=== PATIENT | female | born 1965 | race Caucasian/White ===

== ENCOUNTER → 2016-06-09 | Outpatient (CLI) | payer BC ==
[~2016-06-09] MED LIST: ASPIRIN81 M2 PO; ATENOLOL PO; AUGMENTIN PO; BENADRYL25 M3 PO; CARDIZEM CD120 M1 PO; CELEXA PO; LISINOPRIL10 MG PO; METFORMIN HCL500 M1 PO; PHENERGAN PO; TYLENOL #3 PO; VENLAFAXINE HC150 M1; ZITHROMAX PO
--- NOTE | ~2016-06-09 | HM ---
Unit #: [id number] #: [id number] Patient: DEBBIE CUNNINGHAM [id number] [address] [address] [id number] O MR#: [id number] NAME: DEBBIE CUNNINGHAM. : 1965 SEX: F STUDY DATE/TIME: [place] [facility] [place] STUDY DESCRIPTION: Holter Monitor Attending Physician: Brandon Miner M.D. Primary Care Physician: Brandon Miner M.D. CARDIOLOGY REPORT EXAM Holter Monitor DATE APPLIED 06/09/2016 DATE SCANNED 06/13/2016 ORDERED BY Brandon Miner M.D. READ BY Chandler Forbes M.D. INDICATION SVT. SUMMARY The patient was monitored for 24 hours. A total of 110,865 QRS complexes were analyzed. The heart rate histogram showed a normal distribution of heart rates. Average heart rate was 78 beats per minute, minimum heart rate 45 beats per minute at 6:24 a.m. Maximum heart rate at 127 beats per minute at approximately 3:45 p.m. There were no pauses. The longest RR interval occurred after a PVC. Supraventricular Ectopy: 226 isolated beats with three identified runs. Longest and fastest run was 134 beats per minute, eight beats in duration, at approximately 9 p.m. A total of 17 beats existed in the three runs. Ventricular Ectopy: 568 isolated beats, with no runs. Symptoms: None. Patient Activated Events: None. IMPRESSION 1. Very rare, self-limited, asymptomatic supraventricular tachycardia identified. 2. No ventricular tachycardia. 3. No pauses. 4. Otherwise normal Holter. Unit #: [id number] #: [id number] Patient: DEBBIE CUNNINGHAM Dictated by... Julissa Eason/autumn TD: 06/14/2016 11:21 JOB #: [id number] CARDIOLOGY REPORT Page 1 of 1 X Chandler Forbes MD HOLTER MONITOR REPORT
== END | disposition home or self-care (01) ==
LOC: CEKG 11:13
DX: I47.1 Supraventricular tachycardia (principal)
CPT/HCPCS: 93225; 93226